=== PATIENT | female | born 1960 | race Caucasian/White ===

== ENCOUNTER 2016-11-12 | Outpatient (CLI) | payer MEDICAID | END 2016-11-12 01:27 | disposition critical access hospital (66) | DX: R07.9 Chest pain, unspecified (principal) | CPT/HCPCS: A0425; A0427 ==

== ENCOUNTER 2016-11-12 01:37 | Emergency (ER) | payer MEDICAID | END 2016-11-12 05:38 | disposition home or self-care (01) | DX: R07.9 Chest pain, unspecified (principal) ==

== ENCOUNTER 2016-11-17 19:00 | Emergency (ER) | payer MEDICAID ==
--- NOTE | 2016-11-17 21:07 | ED Physician Documentation ---
PD HPI LOWER EXT INJURY - Stated complaint Stated Complaint: KNEE PAIN / STRESS - Chief complaint Chief Complaint: Ext Problem - History obtained from History obtained from: Patient - History of Present Illness PD HPI LOW EXT INJURY LOCATION: Right, Knee Type of injury: Twist Where injury occurred: Home Timing - onset: How many weeks ago (2) Timing - duration: Weeks (2) Timing - details: Abrupt onset, Still present, Waxing and waning Worsened by: Moving Associated symptoms: Swelling. 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 : None HEENT: None Psych: None Musculoskeletal: None Derm: None - Past Surgical History Past Surgical History: Yes General: 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 /TAR AND 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 PUMP 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: Hysterectomy - Present Medications Home Medications: Ambulatory Orders Medication Instructions Recorded Confirmed Dexamethasone [Decadron] 4 mg PO DAILY #5 tablet 11/17/16 Tramadol HCl 50 mg PO Q6H PRN #30 tablet 11/17/16 - Allergies Allergies/Adverse Reactions: Allergies Allergy/AdvReac Type Severity Reaction Status Date / Time diphenhydramine HCl * Allergy Respiratory Verified 11/12/16 01:49 [From Benadryl] lansoprazole [From Prevacid] Allergy Hives Verified 11/12/16 01:49 Sulfa (Sulfonamide Allergy Hives Verified 11/12/16 01:49 Antibiotics) Tetracyclines Allergy Respiratory Verified 11/12/16 01:49 Penicillins AdvReac Anaphylaxis Verified 11/17/16 19:06 - Social History Does the pt smoke?: No Smoking Status: Never smoker Does the pt drink ETOH?: No Does the pt have substance abuse?: No - Immunizations Immunizations are current?: Yes - POLST Patient has POLST: No PD ED PE NORMAL - Vitals Vital signs reviewed: Yes - General General: Alert and oriented X 3, No acute distress, Well developed/nourished - Derm Derm: Normal color, Warm and dry, No rash - Extremities Extremities: No edema, No calf tenderness / cord, Other (right knee with some tenderness but no laxity at MCL area. No effusion. ROM guarded. popliteal area not tender.) - Neuro Neuro: No motor deficit, No sensory deficit Results - Vitals Vitals: Oxygen O2 Source Room air - Rads (name of study) knee Radiology: Prelim report reviewed, EMP read contemporaneously (no fractures nor effusion) PD MEDICAL DECISION MAKING - ED course Complexity details: considered differential, d/w patient Departure - Departure Disposition: 01 Home, Self Care Clinical Impression: Knee pain, acute Qualifiers: Laterality: right Qualified Code(s): M25.561 - Pain in right knee Knee strain Qualifiers: Encounter type: initial encounter Laterality: right Qualified Code(s): S86.911A - Strain of unspecified muscle(s) and tendon(s) at lower leg level, right leg, initial encounter Condition: Stable Record reviewed to determine appropriate education?: Yes Instructions: ED Sprain Knee Follow-Up: [facility] [Provider Group] [facility] [Provider Group] [facility] [Provider Group] Prescriptions: Dexamethasone [Decadron] 4 mg PO DAILY #5 tablet Tramadol HCl 50 mg PO Q6H PRN #30 tablet PRN Reason: Pain Comments: Knee brace to support the knee and help ligaments heal. Decadron daily for 5 days for inflammation. Tramadol every 4-6 hours if needed for pain. Obtain local provider; I gave couple of clinic numbers to try. Could also follow up with Orthopedics for the knee if not better in the next week or so. Discharge Date/Time: 11/17/16 22:55
[2016-11-17] MEDS ORDERED: traMADol 50 MG TABLET PO STA (21:27)
[2016-11-17] MEDS ORDERED: traMADol 50 MG TABLET PO ONE (21:30)
--- NOTE | 2016-11-17 22:17 | XRAY Preliminary Report ---
Exam: XR Knee 4 View RT IMPRESSION: 1. No acute bony abnormality. 2. Small joint effusion. 3. Mild tricompartment spurring. [facility] SITE ID: [id number]
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
[2016-11-17 22:41] VITALS: BP 110/61
== END 2016-11-17 22:55 | disposition home or self-care (01) ==
LOC: ED 19:00
DX: S86.911A Strain of unspecified muscle(s) and tendon(s) at lower leg level, right leg, initial encounter (principal); X50.1XXA Overexertion from prolonged static or awkward postures, initial encounter; Y92.009 Unspecified place in unspecified non-institutional (private) residence as the place of occurrence of the external cause
CPT/HCPCS: 73564; 99283; A9270

== ENCOUNTER 2016-11-25 10:45 | Emergency (ER) | payer OTHER, MEDICAID ==
[2016-11-25] MEDS ORDERED: cefTRIAXone 250 MG VIAL IM STA (14:56)
[2016-11-25] MEDS ORDERED: AZITHROMYCIN 250 MG TABLET PO STA (14:57)
[2016-11-25] MEDS ORDERED: ONDANSETRON ODT 4 MG TABLET TL STA (14:57)
[2016-11-25] MEDS ORDERED: lamiVUDine/ZIDOVUDINE 150 MG/300 MG TABLET PO STA (14:57)
[2016-11-25] MEDS ORDERED: RALTEGRAVIR 400 MG TABLET PO STA (14:57)
[2016-11-25] MEDS ORDERED: LIDOCAINE-MPF 1% 5 ML VIAL ONE (15:13)
[2016-11-25] MEDS ORDERED: ONDANSETRON ODT 4 MG TABLET ONE (15:13)
[2016-11-25] MEDS ORDERED: AZITHROMYCIN 250 MG TABLET PO ONE (15:13)
[2016-11-25] MEDS ORDERED: cefTRIAXone 250 MG VIAL ONE (15:13)
== END 2016-11-25 17:01 | disposition home or self-care (01) ==
DX: T76.21XA Adult sexual abuse, suspected, initial encounter (principal); S30.810A Abrasion of lower back and pelvis, initial encounter; M54.5 Low back pain; M54.2 Cervicalgia; R51 Headache; R10.2 Pelvic and perineal pain; Y04.8XXA Assault by other bodily force, initial encounter
CPT/HCPCS: 0133C; 36415; 80306; 84703; 86706; 86803; 87389; 99283; A9270; Q0162

== ENCOUNTER 2016-12-25 18:33 | Emergency (ER) | payer MEDICAID ==
[2016-12-25] MEDS ORDERED: ALBUTEROL NEB 2.5 MG/3 ML INH STA (20:04)
[2016-12-25] MEDS ORDERED: ALBUTEROL NEB 2.5 MG/3 ML INH ONE (20:21)
[2016-12-25] MEDS ORDERED: ALBUTEROL 8 GM INHALER INH STA (21:24)
[2016-12-25] MEDS ORDERED: ALBUTEROL 8 GM INHALER INH ONE (21:41)
== END 2016-12-25 22:14 | disposition home or self-care (01) ==
DX: J06.9 Acute upper respiratory infection, unspecified (principal); B97.89 Other viral agents as the cause of diseases classified elsewhere; I25.2 Old myocardial infarction; Z86.73 Personal history of transient ischemic attack (TIA), and cerebral infarction without residual deficits
CPT/HCPCS: 71020; 93005; 93010; 94640; 94664; 99283; 99284; A9270; J7613

== ENCOUNTER 2016-12-28 23:27 | Outpatient (CLI) | payer MEDICAID | END 2016-12-28 23:28 | disposition critical access hospital (66) | DX: R06.02 Shortness of breath (principal); R07.89 Other chest pain | CPT/HCPCS: A0425; A0427 ==

== ENCOUNTER 2016-12-29 00:01 | Emergency (ER) | payer MEDICAID ==
[2016-12-29] MEDS ORDERED: CETIRIZINE 10 MG TABLET PO STA (01:51)
[2016-12-29] MEDS ORDERED: DEXAMETHASONE 10 MG/ML VIAL PO STA (01:51)
[2016-12-29] MEDS ORDERED: CHERRY SYRUP 10 ML UDC PO ONE (01:53)
[2016-12-29] MEDS ORDERED: CETIRIZINE 10 MG TABLET ONE ×2 (01:53→01:55)
[2016-12-29] MEDS ORDERED: DEXAMETHASONE 10 MG/ML VIAL ONE (01:53)
[2016-12-29] MEDS ORDERED: NITROGLYCERIN SL 0.4 MG TABLET SL STA (01:57)
[2016-12-29] MEDS ORDERED: NITROGLYCERIN SL 0.4 MG TABLET SL ONE (01:58)
[2016-12-29] MEDS ORDERED: ACETAMINOPHEN 325 MG TABLET PO STA (02:28)
[2016-12-29] MEDS ORDERED: ACETAMINOPHEN 325 MG TABLET PO ONE (02:30)
== END 2016-12-29 03:21 | disposition home or self-care (01) ==
DX: R07.2 Precordial pain (principal); R06.00 Dyspnea, unspecified; I25.2 Old myocardial infarction; Z86.73 Personal history of transient ischemic attack (TIA), and cerebral infarction without residual deficits; Z59.0 Homelessness
CPT/HCPCS: 36415; 71020; 80053; 83690; 83735; 83880; 84484; 85025; 93005; 93010; 99283; 99284; A9270

== ENCOUNTER 2017-06-01 08:07 | Emergency (ER) | payer MEDICAID ==
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
[2017-06-01 09:15] VITALS: BP 142/84
== END 2017-06-01 09:08 | disposition home or self-care (01) ==
LOC: ED 08:07
DX: R51 Headache (principal); I25.2 Old myocardial infarction; Z86.73 Personal history of transient ischemic attack (TIA), and cerebral infarction without residual deficits; Z59.0 Homelessness; Z79.82 Long term (current) use of aspirin
CPT/HCPCS: 99282; 99283

== ENCOUNTER 2017-07-05 06:36 | Outpatient (CLI) | payer MEDICAID | END 2017-07-05 06:37 | disposition critical access hospital (66) | LOC: EMS 06:36 | PROVIDERS: ATTEND Surgery | DX: M54.5 Low back pain (principal); R11.2 Nausea with vomiting, unspecified | CPT/HCPCS: A0425; A0429 ==

== ENCOUNTER 2017-07-05 06:53 | Emergency (ER) | payer MEDICAID ==
[2017-07-05] MEDS ORDERED: DEXAMETHASONE 10 MG/ML VIAL PO STA (07:22)
[2017-07-05] MEDS ORDERED: ONDANSETRON ODT 4 MG TABLET TL STA (07:22)
--- NOTE | 2017-07-05 07:27 | ED Physician Documentation ---
PD HPI BACK PAIN - Stated complaint Stated Complaint: N/V BACK PX - Chief complaint Chief Complaint: Back Pain - History obtained from History obtained from: Patient - History of Present Illness Timing - onset: Today Timing - duration: Hours Timing - details: Abrupt onset, Still present Location: Lower, Left Quality: Pain, Spasm, Sharp, Similar to prior episodes Associated symptoms: No: Fever, Weakness, Numbness, Incontinent of urine, Unable to urinate, Hematuria, Incontinent of stool Improves with: Rest, Position Worsened by: Movement, Lifting Similar symptoms before: Diagnosis (back pain) Recently seen: Not recently seen - Additional information Additional information: 56-year-old homeless female with a history of fictitious emergency department visits comes in this morning with low back pain with pain radiating to her left leg. She states that she vomited this morning and still has nausea and after vomiting this is when the pain started. She denies any urinary symptoms. Review of Systems Constitutional: denies: Fever, Chills, Myalgias, Fatigue Eyes: denies: Decreased vision Ears: denies: Ear pain Nose: denies: Congestion Throat: denies: Sore throat Cardiac: denies: Chest pain / pressure Respiratory: denies: Dyspnea, Cough GI: reports: Nausea, Vomiting. denies: Abdominal Pain, Constipation, Diarrhea : denies: Dysuria, Frequency Skin: denies: Rash Musculoskeletal: reports: Back pain. 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: None : None HEENT: None Psych: None Musculoskeletal: None Derm: None - Past Surgical History Past Surgical History: Yes General: 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 /DATA MANAGEMENT SPECIALIST: Hysterectomy - Present Medications Home Medications: Ambulatory Orders Medication Instructions Recorded Confirmed traMADol [Ultram] 50 - 100 mg PO Q6H PRN #20 tablet 07/05/17 - Allergies Allergies/Adverse Reactions: Allergies Allergy/AdvReac Type Severity Reaction Status Date / Time acetaminophen Allergy Respiratory Verified 07/05/17 07:05 aspirin Allergy Unknown Verified 07/05/17 07:05 diphenhydramine HCl * Allergy Respiratory Verified 07/05/17 07:05 [From Benadryl] lansoprazole [From Prevacid] Allergy Hives Verified 07/05/17 07:05 Sulfa (Sulfonamide Allergy Hives Verified 07/05/17 07:05 Antibiotics) Tetracyclines Allergy Respiratory Verified 07/05/17 07:05 Penicillins AdvReac Anaphylaxis Verified 07/05/17 07:05 - Social History Does the pt smoke?: No Smoking Status: Never smoker Does the pt drink ETOH?: No Does the pt have substance abuse?: No - Immunizations Immunizations are current?: Yes - POLST Patient has POLST: No PD ED PE NORMAL - Vitals Vital signs reviewed: Yes (hypertensive) - General General: Well developed/nourished, Other (The patient is whinning in a high pitched voice and appears to be in pain ) - HEENT HEENT: Atraumatic, PERRL, EOMI - Neck Neck: Supple, no meningeal sign - Respiratory Respiratory: No respiratory distress - Abdomen Abdomen: Soft, Non tender - Back Back: No CVA TTP, No spinal TTP, Other (There is some paraspinous muscle tenderness to the lower lumbar paraspinous muscles on the left side. ) - Derm Derm: Normal color, Warm and dry, No rash - Extremities Extremities: No deformity, No edema - Neuro Neuro: No motor deficit, No sensory deficit - Psych Psych: Normal mood, Normal affect Results - Vitals Vitals: Vital Signs - 24 hr 07/05/17 06:58 Temperature 36.8 C Heart Rate 73 Respiratory 18 Rate Blood Pressure 144/84 H O2 Saturation 100 Oxygen O2 Source Room air - Labs Labs: Laboratory Tests 07/05/17 08:00 Urine Color YELLOW Urine Clarity CLEAR Urine pH 7.5 Ur Specific [place] 1.010 Urine Protein NEGATIVE Urine Glucose (UA) NEGATIVE Urine Ketones NEGATIVE Urine Occult Blood NEGATIVE Urine Nitrite NEGATIVE Urine Bilirubin NEGATIVE Urine Urobilinogen 0.2 (NORMAL) Ur Leukocyte Esterase NEGATIVE Ur Microscopic Review NOT INDICATED Urine Culture Comments NOT INDICATED Procedures - Bedside sono Bedside sono by STALIN: Bernice bedside ultrasound the left kidney is imaged there is no evidence of hydronephrosis and the kidney is sonographically nontender. - IVC sono (time) 0717 Bedside IVC sono: IVC measures (cm) (1.58), Euvolemia PD MEDICAL DECISION MAKING - ED course Complexity details: reviewed results, re-evaluated patient, considered differential, d/w patient ED course: 52-year-old homeless female with acute lumbar pain with radiation down the left leg appears to have acute sciatica after vomiting. She does not have specific explanation for her vomiting and does not have symptoms preceding the episode. She does not have flank pain and has a nontender left kidney. Here in the emergency department she is given dexamethasone, Zofran and IM Toradol. Departure - Departure Disposition: Home, Self Care Clinical Impression: Sciatica Qualifiers: Laterality: left Qualified Code(s): M54.32 - Sciatica, left side Condition: Stable Instructions: ED Sciatica Follow-Up: [facility] [Provider Group] Prescriptions: traMADol [Ultram] 50 - 100 mg PO Q6H PRN #20 tablet PRN Reason: Pain
[2017-07-05] MEDS ORDERED: ONDANSETRON ODT 4 MG TABLET ONE (07:35)
[2017-07-05] MEDS ORDERED: CHERRY SYRUP 10 ML UDC PO ONE (07:36)
[2017-07-05] MEDS ORDERED: DEXAMETHASONE 10 MG/ML VIAL ONE (07:36)
[2017-07-05] MEDS ORDERED: KETOROLAC 60 MG/2 ML VIAL IM STA (07:44)
[2017-07-05] MEDS ORDERED: KETOROLAC 60 MG/2 ML VIAL ONE (08:03)
[2017-07-05 08:16] LABS: BILIRUBIN,URINE NEGATIVE (NEGATIVE); PH,URINE 7.5 PH (5.0-7.5)
[2017-07-05 08:20] LABS: UA CHARGE (STRIP ONLY) YES; UR CULTURE IF IND NOT INDICATED
[2017-07-05 09:10] VITALS: BP 145/84
== END 2017-07-05 09:11 | disposition home or self-care (01) ==
LOC: EDUNIT# → ED 06:53
DX: M54.32 Sciatica, left side (principal); I25.2 Old myocardial infarction; Z86.73 Personal history of transient ischemic attack (TIA), and cerebral infarction without residual deficits; Z59.0 Homelessness
CPT/HCPCS: 81003; 96372; 99283; 99284; A9270; Q0162; 81001; 87086

== ENCOUNTER 2017-07-13 21:19 | Outpatient (CLI) | payer MEDICAID | END 2017-07-13 21:20 | disposition critical access hospital (66) | LOC: EMS 21:19 | PROVIDERS: ATTEND Surgery | DX: M54.5 Low back pain (principal) | CPT/HCPCS: A0425; A0429 ==

== ENCOUNTER 2017-07-13 21:37 | Emergency (ER) | payer MEDICAID ==
[2017-07-13] MEDS ORDERED: HYDROmorphone 1 MG/ML CARPUJECT IM STA (22:00)
[2017-07-13] MEDS ORDERED: GABAPENTIN 100 MG CAPSULE PO STA (22:00)
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
[2017-07-13] MEDS ORDERED: GABAPENTIN 100 MG CAPSULE ONE (22:06)
[2017-07-13] MEDS ORDERED: HYDROmorphone 1 MG/ML CARPUJECT ONE ×2 (22:06→22:16)
[2017-07-13] MEDS ORDERED: GABAPENTIN 300 MG CAPSULE ONE (22:16)
[2017-07-14] MEDS ORDERED: KETOROLAC 60 MG/2 ML VIAL IVP STA (05:38)
[2017-07-14] MEDS ORDERED: KETOROLAC 60 MG/2 ML VIAL IM STA (05:44)
[2017-07-14] MEDS ORDERED: KETOROLAC 15 MG/ML VIAL ONE (05:46)
[2017-07-14] MEDS ORDERED: KETOROLAC 60 MG/2 ML VIAL ONE (05:49)
[2017-07-14 06:04] VITALS: BP 141/82
== END 2017-07-14 06:01 | disposition home or self-care (01) ==
LOC: EDUNIT# → ED 21:37
DX: M54.32 Sciatica, left side (principal); I25.2 Old myocardial infarction; Z86.73 Personal history of transient ischemic attack (TIA), and cerebral infarction without residual deficits; R03.0 Elevated blood-pressure reading, without diagnosis of hypertension
CPT/HCPCS: 96372; 99283; A9270; J1170

== ENCOUNTER 2017-07-22 05:50 | Outpatient (CLI) | payer MEDICAID | END 2017-07-22 05:51 | disposition critical access hospital (66) | LOC: EMS 05:50 | PROVIDERS: ATTEND Surgery | DX: M54.9 Dorsalgia, unspecified (principal); G89.29 Other chronic pain | CPT/HCPCS: A0425; A0429 ==

== ENCOUNTER 2017-07-22 06:05 | Emergency (ER) | payer MEDICAID ==
--- NOTE | 2017-07-22 07:35 | ED Physician Documentation ---
PD HPI BACK PAIN - Stated complaint Stated Complaint: BACK PAIN - Chief complaint Chief Complaint: Back Pain - History obtained from History obtained from: Patient - History of Present Illness Timing - onset: How many weeks ago (2 1/2) Timing - duration: Weeks (2 1/2) Timing - details: Abrupt onset, Still present Location: Lower, Left Quality: Pain, Spasm, Sharp, Similar to prior episodes Associated symptoms: Incontinent of urine (intermittant X 2 months.). No: Fever , Weakness, Numbness, Unable to urinate, Hematuria, Incontinent of stool Improves with: Rest Worsened by: Movement, Twisting, Palpation Contributing factors: Lifting, Twisting Similar symptoms before: Diagnosis (sciatica) Recently seen: Emergency Dept - Additional information Additional information: 56-year-old female with a prior history of fictitious emergency department visits as developed some back pain which occurred after she vomited about 2 and half weeks ago. She continues to have this pain in her left lower back radiating into her left leg. She was seen last week and given gabapentin. She states that she did not feel this medicine helped with the pain at all. She continues to have pain and has had a difficult time getting into see her primary care doctor. She has been assigned to Kirsten Gonzalez as her doctor. The patient has not been able to get the paratransit to take her to Dr. Gonzalez's office.She continues to live [facility] the [facility]. Review of Systems Constitutional: denies: Fever Eyes: denies: Decreased vision Ears: denies: Ear pain Nose: denies: Congestion Throat: denies: Sore throat Cardiac: denies: Chest pain / pressure, Palpitations Respiratory: denies: Dyspnea, Cough GI: reports: Nausea. denies: Abdominal Pain, Vomiting, Constipation, Diarrhea : reports: Incontinent (intermmittent for 2 months with a difficulty in getting to the bathroom quick enough.). denies: Dysuria, Frequency Skin: denies: Rash Musculoskeletal: reports: Back pain, Extremity pain. denies: Neck pain Neurologic: reports: Numbness (To the anterior left thigh). 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: None : None HEENT: None Psych: None Musculoskeletal: None Derm: None - Past Surgical History Past Surgical History: Yes General: 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 /NURSE PLASTICS: Hysterectomy - Present Medications Home Medications: Ambulatory Orders Medication Instructions Recorded Confirmed traMADol [Ultram] 50 - 100 mg PO Q6H PRN #20 tablet 07/05/17 Gabapentin 300 mg PO TID #30 capsule 07/13/17 traMADol [Ultram] 50 - 100 mg PO Q6H PRN #20 tablet 07/22/17 - Allergies Allergies/Adverse Reactions: Allergies Allergy/AdvReac Type Severity Reaction Status Date / Time acetaminophen Allergy Respiratory Verified 07/13/17 21:43 aspirin Allergy Unknown Verified 07/13/17 21:43 diphenhydramine HCl * Allergy Respiratory Verified 07/13/17 21:43 [From Benadryl] lansoprazole [From Prevacid] Allergy Hives Verified 07/13/17 21:43 Sulfa (Sulfonamide Allergy Hives Verified 07/13/17 21:43 Antibiotics) Tetracyclines Allergy Respiratory Verified 07/13/17 21:43 Penicillins AdvReac Anaphylaxis Verified 07/13/17 21:43 - Social History Does the pt smoke?: No Smoking Status: Never smoker Does the pt drink ETOH?: No Does the pt have substance abuse?: No - Immunizations Immunizations are current?: Yes - POLST Patient has POLST: No PD ED PE NORMAL - Vitals Vital signs reviewed: Yes (hypertnsive ) - General General: No acute distress, Well developed/nourished - HEENT HEENT: Atraumatic, PERRL, EOMI - Neck Neck: Supple, no meningeal sign - Respiratory Respiratory: No respiratory distress - Back Back: No CVA TTP, No spinal TTP, Other (There is tenderenss to the left lower lumbar muscles and into the sciatic notch. ) - Derm Derm: Normal color, Warm and dry, No rash - Neuro Neuro: No motor deficit, No sensory deficit - Psych Psych: Normal mood, Normal affect Results - Vitals Vitals: Vital Signs - 24 hr 07/22/17 06:10 Heart Rate 74 Respiratory 17 Rate Blood Pressure 140/88 H O2 Saturation 98 Oxygen O2 Source Room air PD MEDICAL DECISION MAKING - ED course Complexity details: reviewed old records, re-evaluated patient, considered differential, d/w patient ED course: 56-year-old female with a history of sciatica after a vomiting episode has exacerbation of her symptoms again. She does not think that she got much relief with the use of the gabapentin. She does feel that she had some improvement with use of the tramadol given previously. Here in the emergency department today she is given a dose of dexamethasone and Toradol IM and we will place her back on some tramadol. Departure - Departure Disposition: Home, Self Care Clinical Impression: Sciatica Qualifiers: Laterality: left Qualified Code(s): M54.32 - Sciatica, left side Instructions: ED Sciatica Follow-Up: Yusef Gonzalez DO [Provider Admit Priv/Credential] - Prescriptions: traMADol [Ultram] 50 - 100 mg PO Q6H PRN #20 tablet PRN Reason: Pain
[2017-07-22] MEDS ORDERED: KETOROLAC 60 MG/2 ML VIAL IM STA (07:44)
[2017-07-22] MEDS ORDERED: DEXAMETHASONE 10 MG/ML VIAL PO STA (07:44)
[2017-07-22] MEDS ORDERED: DEXAMETHASONE 10 MG/ML VIAL ONE (07:58)
[2017-07-22] MEDS ORDERED: KETOROLAC 60 MG/2 ML VIAL ONE (07:58)
[2017-07-22 08:48] VITALS: BP 136/88
== END 2017-07-22 09:14 | disposition home or self-care (01) ==
LOC: EDUNIT# → EDBD → ED 06:05
DX: M54.32 Sciatica, left side (principal); I25.2 Old myocardial infarction; Z86.73 Personal history of transient ischemic attack (TIA), and cerebral infarction without residual deficits
CPT/HCPCS: 96372; 99283

== ENCOUNTER 2018-06-02 03:13 | Outpatient (CLI) | payer SELFPAY | END 2018-06-02 03:14 | disposition critical access hospital (66) | LOC: EMS 03:13 | PROVIDERS: ATTEND Surgery | DX: R51 Headache (principal) | CPT/HCPCS: A0425; A0429; A0999 ==

== ENCOUNTER 2018-06-02 03:31 | Emergency (ER) | payer MEDICAID ==
--- NOTE | 2018-06-02 03:56 | ED Physician Documentation ---
PD HPI HEADACHE - Stated complaint Stated Complaint: CARBONE, LIGHT SENSITIVITY, NAUSEA - Chief complaint Chief Complaint: Neuro - History obtained from History obtained from: Patient, EMS - History of Present Illness Timing - onset: Enter time (00:00 (midnight)), Today Timing - onset during: Rest Timing - details: Abrupt onset, Still present in ED Pain level now: 8 Worst headache ever?: No: Worst headache ever? Location: Front, Right, Left Quality: Throbbing, Aching Associated symptoms: Nausea, Vomiting. No: Fever, Stiff neck, Weakness, Numbness, Vision changes Improved by: Rest, Dark room, Quiet Worsened by: Light, Noise, Moving Recently seen: Not recently seen Review of Systems Constitutional: reports: Reviewed and negative Eyes: reports: Photophobia. denies: Loss of vision, Decreased vision Ears: reports: Ear pain (right) Throat: reports: Sore throat Cardiac: reports: Reviewed and negative Respiratory: reports: Reviewed and negative GI: reports: Nausea, Vomiting. denies: Abdominal Pain Musculoskeletal: denies: Neck pain Neurologic: reports: Headache. 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 surgery /AUTOMATIC GRINDER OPERATOR: Hysterectomy Cardiovascular: Other - Present Medications Home Medications: Ambulatory Orders Medication Instructions Recorded Confirmed Azithromycin [Zithromax] 250 mg PO DAILY #4 tablet 06/02/18 oxyCODONE [Roxicodone] 5 mg PO Q6H PRN #12 tablet 06/02/18 - Allergies Allergies/Adverse Reactions: Allergies Allergy/AdvReac Type Severity Reaction Status Date / Time acetaminophen Allergy Respiratory Verified 06/02/18 03:35 aspirin Allergy Unknown Verified 06/02/18 03:35 diphenhydramine HCl * Allergy Respiratory Verified 06/02/18 03:35 [From Benadryl] ibuprofen Allergy Itching Verified 06/02/18 03:35 lansoprazole [From Prevacid] Allergy Hives Verified 06/02/18 03:35 Sulfa (Sulfonamide Allergy Hives Verified 06/02/18 03:35 Antibiotics) Tetracyclines Allergy Respiratory Verified 06/02/18 03:35 Penicillins AdvReac Anaphylaxis Verified 06/02/18 03:35 - Social History Does the pt smoke?: No Smoking Status: Never smoker Does the pt drink ETOH?: No Does the pt have substance abuse?: No - Immunizations Immunizations are current?: Yes - POLST Patient has POLST: No PD ED PE NORMAL - Vitals Vital signs reviewed: Yes - General General: Alert and oriented X 3, No acute distress, Well developed/nourished - HEENT HEENT: PERRL, EOMI, Moist mucous membranes - Neck Neck: Supple, no meningeal sign - Cardiac Cardiac: RRR, No murmur - Respiratory Respiratory: No respiratory distress, Clear bilaterally - Abdomen Abdomen: Soft, Non tender PD ED PE EXPANDED - HEENT HEENT: R TM red (trace erythema), Pharyngeal erythema (predominantly right- sided with swelling). No: L TM red, Tonsillar exudate Results - Vitals Vitals: Vital Signs - 24 hr 06/02/18 06/02/18 06/02/18 03:35 04:25 06:02 Temperature 37.1 C Heart Rate 85 83 74 Respiratory 14 12 14 Rate Blood Pressure 106/92 H 147/87 H 126/86 H O2 Saturation 99 100 100 Oxygen O2 Source Room air - Labs Labs: Laboratory Tests 06/02/18 06/02/18 03:30 03:30 WBC 6.0 RBC 4.57 Hgb 14.1 Hct 41.4 MCV 90.6 MCH 30.9 MCHC 34.1 RDW 13.3 Plt Count 234 MPV 8.6 Neut # (Auto) 4.2 Lymph # (Auto) 1.3 L [place] # (Auto) 0.3 Eos # (Auto) 0.1 Baso # (Auto) 0.0 Absolute Nucleated RBC 0.00 Nucleated RBC % 0.0 Sodium 138 Potassium 3.5 Chloride 103 Carbon Dioxide 26 Anion Gap 9.0 BUN 8 Creatinine 1.0 Estimated GFR (MDRD) 58 L Glucose 110 H Calcium 9.7 PD MEDICAL DECISION MAKING - ED course Complexity details: reviewed old records, reviewed results, re-evaluated patient , considered differential, d/w patient - Sepsis Event Vital Signs: Vital Signs - 24 hr 06/02/18 06/02/18 06/02/18 03:35 04:25 06:02 Temperature 37.1 C Heart Rate 85 83 74 Respiratory 14 12 14 Rate Blood Pressure 106/92 H 147/87 H 126/86 H O2 Saturation 99 100 100 Oxygen O2 Source Room air Departure - Departure Disposition: 01 Home, Self Care Clinical Impression: Headache, Pharyngitis Condition: Good Instructions: ED Cephalgia Unspecified, ED Strep Pharyngitis Poss Follow-Up: [facility] [Provider Group] [facility] [Provider Group] Prescriptions: Azithromycin [Zithromax] 250 mg PO DAILY #4 tablet oxyCODONE [Roxicodone] 5 mg PO Q6H PRN #12 tablet PRN Reason: Pain Discharge Date/Time: 06/02/18 08:38
[2018-06-02] MEDS ORDERED: ONDANSETRON 4 MG/2 ML VIAL IVP STA (04:37)
[2018-06-02] MEDS ORDERED: SODIUM CHLORIDE 0.9% 1,000 ML IV STA (04:38)
[2018-06-02] MEDS ORDERED: MORPHINE 2 MG/ML SYRINGE IVP STA (04:38)
[2018-06-02 04:46] LABS: BASOPHILS % (AUTO) 0.6 %; EOSINOPHILS # (AUTO) 0.1 10^3/uL (0.0-0.7); EOSINOPHILS % (AUTO) 2.1 %; HGB - HEMOGLOBIN 14.1 g/dL (12.0-16.0); LYMPHOCYTES # (AUTO) 1.3 10^3/uL (1.5-3.5); LYMPHOCYTES % (AUTO) 21.2 %; MEAN CORPUSCULAR HEMOGLOBIN 30.9 pg (27.0-31.0); MEAN CORPUSCULAR HGB CONC 34.1 g/dL (32.0-36.0); MEAN CORPUSCULAR VOLUME 90.6 fL (81.0-99.0); MEAN PLATELET VOLUME 8.6 fL (7.9-10.8); MONOCYTES # (AUTO) 0.3 10^3/uL (0.0-1.0); MONOCYTES % (AUTO) 5.8 %; NEUTROPHILS # (AUTO) 4.2 10^3/uL (1.5-6.6); NEUTROPHILS % (AUTO) 70.3 %; PLT - PLATELET COUNT 234 10^3/uL (130-450); RED BLOOD COUNT 4.57 10^6/uL (4.20-5.40); RED CELL DISTRIBUTION WIDTH 13.3 % (12.0-15.0)
[2018-06-02 04:49] LABS: CALCIUM 9.7 mg/dL (8.5-10.3)
[2018-06-02 06:04] VITALS: BP 126/86
[2018-06-02] MEDS ORDERED: AZITHROMYCIN 250 MG TABLET PO STA (06:09)
[2018-06-02] MEDS ORDERED: oxyCODONE 5 MG TABLET PO STA (06:09)
== END 2018-06-02 08:38 | disposition home or self-care (01) ==
LOC: EDUNIT# → ED 03:31
DX: R51 Headache (principal); J02.9 Acute pharyngitis, unspecified; E11.9 Type 2 diabetes mellitus without complications
CPT/HCPCS: 36415; 80048; 85025; 96361; 96374; 99283; 99284; A9270; J2270

== ENCOUNTER 2019-01-01 21:15 | Outpatient (CLI) | payer MEDICAID | END 2019-01-01 21:16 | disposition critical access hospital (66) | LOC: EMS 21:15 | PROVIDERS: ATTEND Surgery | DX: R68.84 Jaw pain (principal); R51 Headache; R45.1 Restlessness and agitation | CPT/HCPCS: A0425; A0429 ==

== ENCOUNTER 2019-01-01 21:33 | Emergency (ER) | payer MEDICAID ==
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
[2019-01-01] MEDS ORDERED: oxyCODONE 5 MG TABLET PO STA (22:35)
[2019-01-01 23:38] VITALS: BP 139/90
== END 2019-01-01 23:47 | disposition home or self-care (01) ==
LOC: EDBD → EDUNIT# → ED 21:33
DX: R68.84 Jaw pain (principal); G89.29 Other chronic pain; E11.9 Type 2 diabetes mellitus without complications; Z86.73 Personal history of transient ischemic attack (TIA), and cerebral infarction without residual deficits; Z79.82 Long term (current) use of aspirin
CPT/HCPCS: 99283; A9270

== ENCOUNTER 2019-01-03 14:10 | Emergency (ER) | payer MEDICAID ==
--- NOTE | 2019-01-03 14:51 | ED Physician Documentation ---
PD HPI HEENT - Stated complaint Stated Complaint: JAW PX - Chief complaint Chief Complaint: Heent - History obtained from History obtained from: Patient, Other (The history is taken in the room with Jenny as witness) - History of Present Illness Timing - onset: How many weeks ago (1) Timing - duration: Weeks (1) Timing - details: Gradual onset, Still present Location: Other (right jaw) Worsens: Position Associated symptoms: Congestion, Headache, Cough. No: Fever Similar symptoms before: Diagnosis (jaw pain) Recently seen: Emergency Dept - Additional information Additional information: 58-year-old female who has a prior history of fictitious emergency department visits has come to the emergency department with a chief complaint of right upper jaw pain. She was seen here in the emergency department 2 days ago and given some pain medication which she states is not helping. She states that her pain is severe. Review of Systems Constitutional: denies: Fever Eyes: denies: Decreased vision Ears: denies: Ear pain Nose: reports: Congestion. denies: Rhinorrhea / runny nose Throat: reports: Other (jaw pain). denies: Dental pain / toothache, Sore throat Respiratory: reports: Cough. 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 : None HEENT: None Psych: None Musculoskeletal: Chronic back pain Derm: None - Past Surgical History Past Surgical History: Yes General: 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, Gastric surgery /CAR WASHER: Hysterectomy Cardiovascular: Other - Present Medications Home Medications: Ambulatory Orders Medication Instructions Recorded Confirmed RX: Oxycodone HCl 5 mg PO TID PRN #18 tablet 01/01/19 RX: traMADol [Ultram] 50 - 100 mg PO Q6H PRN #20 tablet 01/03/19 - Allergies Allergies/Adverse Reactions: Allergies Allergy/AdvReac Type Severity Reaction Status Date / Time acetaminophen Allergy Respiratory Verified 01/03/19 14:18 aspirin Allergy Unknown Verified 01/03/19 14:18 diphenhydramine HCl * Allergy Respiratory Verified 01/03/19 14:18 [From Benadryl] ibuprofen Allergy Itching Verified 01/03/19 14:18 lansoprazole [From Prevacid] Allergy Hives Verified 01/03/19 14:18 Sulfa (Sulfonamide Allergy Hives Verified 01/03/19 14:18 Antibiotics) Tetracyclines Allergy Respiratory Verified 01/03/19 14:18 Penicillins AdvReac Anaphylaxis Verified 01/03/19 14:18 - Social History Does the pt smoke?: No Smoking Status: Never smoker Does the pt drink ETOH?: No Does the pt have substance abuse?: No - Immunizations Immunizations are current?: Yes - POLST Patient has POLST: No PD ED PE NORMAL - Vitals Vital signs reviewed: Yes (hypertensive ) - General General: Alert and oriented X 3, No acute distress, Well developed/nourished - HEENT HEENT: Atraumatic, PERRL, EOMI, Other (There is infamation to the left TM with retained landmarks the right is with less involvment. There is some mild tenderness to the right TMJ area and no specific tenderness to palpation of the teeth. When I complete the exam the patient indicates the teech are moving around. 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, No motor deficit, No sensory deficit, Normal speech Eye Opening: Spontaneous Motor: Obeys Commands Verbal: Oriented GCS Score: 15 - Psych Psych: Normal mood, Normal affect Results - Vitals Vitals: Vital Signs - 24 hr 01/03/19 01/03/19 14:15 15:25 Temperature 36 C L 36.6 C Heart Rate 79 80 Respiratory 16 16 Rate Blood Pressure 142/96 H 138/92 H O2 Saturation 100 100 Oxygen O2 Source Room air - Labs Labs: Laboratory Tests 01/03/19 14:52 Urine Color YELLOW Urine Clarity CLEAR Urine pH 5.5 Ur Specific [place] 1.025 Urine Protein NEGATIVE Urine Glucose (UA) NEGATIVE Urine Ketones NEGATIVE Urine Occult Blood NEGATIVE Urine Nitrite NEGATIVE Urine Bilirubin NEGATIVE Urine Urobilinogen 0.2 (NORMAL) Ur Leukocyte Esterase NEGATIVE Ur Microscopic Review NOT INDICATED Urine Culture Comments NOT INDICATED PD MEDICAL DECISION MAKING - ED course Complexity details: considered differential, d/w patient ED course: 58-year-old female with a complaint of right jaw pain has an unremarkable remarkable exam with the exception of some mild inflammation in the TMs bilaterally. She is complaining of urinary incontinence and believes she might have a urinary tract infection. A specimen is collected and is unremarkable. She is administered a dose of decadron and we will change her pain medication to tramadol. Departure - Departure Disposition: 01 Home, Self Care Clinical Impression: TMJ tenderness, right Condition: Stable Instructions: ED TMJ Syndrome Follow-Up: [facility] [Provider Group] Prescriptions: RX: traMADol [Ultram] 50 - 100 mg PO Q6H PRN #20 tablet PRN Reason: Pain Discharge Date/Time: 01/03/19 15:25
[2019-01-03 15:01] LABS: BILIRUBIN,URINE NEGATIVE (NEGATIVE); CLARITY,URINE CLEAR (CLEAR); GLUCOSE, URINE (UA) NEGATIVE (NEGATIVE); KETONES,URINE (UA) NEGATIVE (NEGATIVE); LEUKOCYTE ESTERASE, URINE NEGATIVE (NEGATIVE); NITRITE,URINE NEGATIVE (NEGATIVE); OCCULT BLOOD,URINE NEGATIVE (NEGATIVE); PH,URINE 5.5 PH (5.0-7.5); PROTEIN,URINE NEGATIVE (NEGATIVE); UROBILINOGEN,URINE 0.2 (NORMAL) E.U./dL (NORMAL)
[2019-01-03] MEDS ORDERED: DEXAMETHASONE 10 MG/ML VIAL PO STA (15:17)
[2019-01-03 15:25] VITALS: BP 138/92
== END 2019-01-03 15:25 | disposition home or self-care (01) ==
LOC: ED 14:10
DX: M26.601 Right temporomandibular joint disorder, unspecified (principal); E11.9 Type 2 diabetes mellitus without complications
CPT/HCPCS: 81001; 81003; 87086; 99283

== ENCOUNTER 2019-05-13 | Outpatient (CLI) | payer MEDICAID | END 2019-05-13 23:59 | disposition home or self-care (01) ==

== ENCOUNTER 2022-02-18 09:25 | Emergency (ER) | payer MEDICAID ==
--- NOTE | 2022-02-18 10:01 | ED Physician Documentation ---
PD HPI URI - Stated complaint Stated Complaint: COUGH/CONGESTION - Chief complaint Chief Complaint: General - History obtained from History obtained from: Patient - History of Present Illness Timing - onset: How many weeks ago (1) Timing duration: Weeks (1) Timing details: Abrupt onset, Still present (has had cough and dypsnea for a week, without improving. Poor sleep due to cough.) Associated symptoms: Chills, Nasal congestion, Dry cough, Dyspnea. No: Fever, Ear pain, Sore throat, NVD Contributing factors: COPD / asthma. No: Sick contact, Travel, Unimmunized Similar symptoms before: Has not had sx before Recently seen: Not recently seen Review of Systems Constitutional: reports: Myalgias. denies: Fever, Chills Nose: reports: Congestion Throat: denies: Sore throat Cardiac: denies: Chest pain / pressure, Palpitations, Pedal edema, Calf pain Respiratory: reports: Dyspnea, Cough, Wheezing GI: denies: Abdominal Pain, Nausea, Vomiting, Diarrhea : denies: Dysuria, Frequency Skin: denies: Rash Neurologic: reports: Generalized weakness. denies: Focal weakness, Numbness, Near syncope, Altered mental status, Headache PD PAST MEDICAL HISTORY - Past Medical History Cardiovascular: [place] Respiratory: Asthma, COPD Neuro: CVA, Headaches, Seizure disorder Endocrine/Autoimmune: Type 2 diabetes, HyPERthyroidism GI: None THREAT MONITORING ANALYST: None : None HEENT: None Psych: None Musculoskeletal: Chronic back pain Derm: None - Past Surgical History Past Surgical History: Yes General: 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, Gastric surgery /THREAT MONITORING ANALYST: Hysterectomy Cardiovascular: Other - Present Medications Home Medications: Ambulatory Orders Medication Instructions Recorded Confirmed Oxycodone HCl 5 mg PO TID PRN #18 tablet 01/01/19 traMADol [Ultram] 50 - 100 mg PO Q6H PRN #20 tablet 01/03/19 Albuterol Sulf [Ventolin Hfa 2 - 3 puffs INH QID 10 Days #1 02/18/22 Inhaler] inhaler Benzonatate [Tessalon] 100 mg PO TID PRN #20 cap 02/18/22 dexAMETHasone [Decadron] 4 mg PO DAILY #5 tablet 02/18/22 - Allergies Allergies/Adverse Reactions: Allergies Allergy/AdvReac Type Severity Reaction Status Date / Time acetaminophen Allergy Respiratory Verified 02/18/22 09:38 aspirin Allergy Unknown Verified 02/18/22 09:38 diphenhydramine HCl * Allergy Respiratory Verified 02/18/22 09:38 [From Benadryl] ibuprofen Allergy Itching Verified 02/18/22 09:38 lansoprazole [From Prevacid] Allergy Hives Verified 02/18/22 09:38 Sulfa (Sulfonamide Allergy Hives Verified 02/18/22 09:38 Antibiotics) Tetracyclines Allergy Respiratory Verified 02/18/22 09:38 Penicillins AdvReac Anaphylaxis Verified 02/18/22 09:38 - Social History Does the pt smoke?: No Smoking Status: Never smoker Does the pt drink ETOH?: No Does the pt have substance abuse?: No - Immunizations Immunizations are current?: Yes - POLST Patient has POLST: No PD ED PE NORMAL - Vitals Vital signs reviewed: Yes - General General: Alert and oriented X 3, No acute distress, Well developed/nourished - HEENT HEENT: Ears normal, Moist mucous membranes, Pharynx benign - Neck Neck: Supple, no meningeal sign, No adenopathy - Cardiac Cardiac: RRR, No murmur - Respiratory Respiratory: No respiratory distress. No: Clear bilaterally (no caorse sounds. No fine crackles. Has tight expiratory sounds with some end exp wheezing. ) - Abdomen Abdomen: Soft, Non tender - Derm Derm: Normal color, Warm and dry - Extremities Extremities: Normal ROM s pain, No edema, No calf tenderness / cord - Neuro Neuro: Alert and oriented X 3, No motor deficit, Normal speech Results - Vitals Vitals: Vital Signs - 24 hr 02/18/22 02/18/22 02/18/22 09:34 10:47 11:37 Temperature 37.2 C 37.0 C Heart Rate 95 83 77 Respiratory 16 20 16 Rate Blood Pressure 153/103 H 158/94 H O2 Saturation 96 94 Oxygen O2 Source Room air - EKG (time done) 10:31 Rate: Rate (enter#) (70) Rhythm: NSR [place]: Normal Intervals: Normal [place] QRS: Normal Ischemia: Normal ST segments. No: ST elevation c/w ischemia, ST depression - Labs Labs: Laboratory Tests 02/18/22 10:24 Nasal Adenovirus (PCR) NOT DETECTED Nasal B. parapertussis DNA (PCR) NOT DETECTED Nasal Coronavir 229E PCR NOT DETECTED Nasal Coronavir HKU1 PCR NOT DETECTED Nasal Coronavir NL63 PCR NOT DETECTED Nasal Coronavir OC43 PCR NOT DETECTED Nasal Enterovir/Rhinovir PCR DETECTED A Nasal Influenza B PCR NOT DETECTED Nasal Influenza A PCR NOT DETECTED Nasal Parainfluen 1 PCR NOT DETECTED Nasal Parainfluen 2 PCR NOT DETECTED Nasal Parainfluen 3 PCR NOT DETECTED Nasal Parainfluen 4 PCR NOT DETECTED Nasal RSV (PCR) NOT DETECTED Nasal B.pertussis DNA PCR NOT DETECTED Nasal C.pneumoniae (PCR) NOT DETECTED Bobby Human Metapneumo PCR NOT DETECTED Nasal M.pneumoniae (PCR) NOT DETECTED Nasal SARS-CoV-2 (PCR) NOT DETECTED - Rads (name of study) chest xray Radiology: Prelim report reviewed (no acute process. suggestion of hiatal hernia versus cavitary lesion left lower lung. ), See rad report PD MEDICAL DECISION MAKING - ED course Complexity details: reviewed results (CXR without acute process (hiatal hernia noted). ECG okay. Has URI symptoms with wheezing. Not history of asthma though. ), considered differential, d/w patient Departure - Departure Disposition: 01 Home, Self Care Clinical Impression: Wheezing Upper respiratory infection Qualifiers: URI type: unspecified viral URI Qualified Code(s): J06.9 - Acute upper respiratory infection, unspecified Condition: Stable Record reviewed to determine appropriate education?: Yes Instructions: ED Upper Resp Infec No Abx Tx Prescriptions: dexAMETHasone [Decadron] 4 mg PO DAILY #5 tablet Benzonatate [Tessalon] 100 mg PO TID PRN #20 cap PRN Reason: Cough Albuterol Sulf [Ventolin Hfa Inhaler] 2 - 3 puffs INH QID 10 Days #1 inhaler Comments: Your chest x-ray is clear without any signs of pneumonia. Your viral panel test is negative for COVID. It does show the presence of another virus which is a simple head cold type of one called rhinovirus. This typically will last 3 to 5 days and improved. We can help your symptoms will of the cough and wheezing with an albuterol inhaler as well as Decadron steroid for inflammation and benzonatate for cough. I sent these prescriptions to [facility]. Stay well-hydrated otherwise. Return if worsening symptoms generally. Discharge Date/Time: 02/18/22 12:12
[2022-02-18] MEDS ORDERED: BENZONATATE 100 MG CAPSULE PO STA (10:13)
[2022-02-18] MEDS ORDERED: DEXAMETHASONE 10 MG/ML VIAL PO STA (10:13)
[2022-02-18] MEDS ORDERED: CHERRY SYRUP 10 ML UDC PO ONE (10:13)
[2022-02-18] MEDS ORDERED: ALBUTEROL 1 PUFF INH STA (10:13)
--- NOTE | 2022-02-18 10:36 | XRAY Report ---
PROCEDURE: Chest 1 View X-Ray INDICATIONS: cough and wheezing TECHNIQUE: One view of the chest was acquired. COMPARISON: December 29, 2016 FINDINGS: Suboptimal positioning. SUPPORT DEVICES: None. LUNGS/PLEURA: No focal consolidation, pleural effusion or space-occupying pneumothorax. MEDIASTINUM: The cardiac silhouette is within normal limits. Retrocardiac lucency, suggesting hiatal hernia. BONES/SOFT TISSUES: No acute abnormality. IMPRESSION: 1.No acute cardiopulmonary abnormality. 2.Suggestion of hiatal hernia. A cavitary lesion cannot be excluded. Consider CT imaging for further evaluation as warranted. Reviewed by: Raphael Ohara MD on 02/18/2022 10:34 AM PDT Approved by: Raphael Ohara MD on 02/18/2022 10:34 AM PDT Station ID: [id number]
[2022-02-18 11:31] LABS: B. PARAPERTUSSIS- RESP PCR PAN NOT DETECTED; B. PERTUSSIS- RESP PCR PANEL NOT DETECTED; C. PNEUMONIAE- RESP PCR PANEL NOT DETECTED; CORONAVIRUS 229E-RESP PCR NOT DETECTED; CORONAVIRUS HKU1-RESP PCR NOT DETECTED; CORONAVIRUS NL63-RESP PCR NOT DETECTED; CORONAVIRUS OC43-RESP PCR NOT DETECTED; HUMAN METAPNEUMOVIRUS NOT DETECTED; INFLUENZA A- RESP PCR PANEL NOT DETECTED; INFLUENZA B - RESP PCR PANEL NOT DETECTED; M. PNEUMONIAE- RESP PCR PANEL NOT DETECTED; PARAINFLUENZA VIRUS 1 NOT DETECTED; PARAINFLUENZA VIRUS 2 NOT DETECTED; PARAINFLUENZA VIRUS 3 NOT DETECTED; PARAINFLUENZA VIRUS 4 NOT DETECTED; RHINOVIRUS/ENTEROVIRUS DETECTED; RSV- RESP PCR PANEL NOT DETECTED; SARS-CoV-2 -RESP PCR PANEL NOT DETECTED
[2022-02-18 11:51] VITALS: BP 158/94
== END 2022-02-18 12:12 | disposition home or self-care (01) ==
LOC: ED 09:25
DX: J06.9 Acute upper respiratory infection, unspecified (principal)
CPT/HCPCS: 87633; 93005; 94640; 94664; 99284

== ENCOUNTER 2022-09-22 10:23 | Emergency (ER) | payer MEDICAID ==
[2022-09-22] MEDS ORDERED: HYDROmorphone 1 MG/ML CARPUJECT IVP STA (10:39)
[2022-09-22] MEDS ORDERED: KETOROLAC 30 MG/ML VIAL IVP STA (10:39)
[2022-09-22] MEDS ORDERED: SODIUM CHLORIDE 0.9% 1,000 ML IV STA (10:39)
[2022-09-22 10:58] LABS: BASOPHILS % (AUTO) 0.6 %; EOSINOPHILS % (AUTO) 0.3 %; HCT - HEMATOCRIT 39.9 % (37.0-47.0); HGB - HEMOGLOBIN 12.6 g/dL (12.0-16.0); LYMPHOCYTES # (AUTO) 0.2 10^3/uL (1.5-3.5); LYMPHOCYTES % (AUTO) 5.3 %; MEAN CORPUSCULAR HGB CONC 31.6 g/dL (32.0-36.0); MEAN CORPUSCULAR VOLUME 91.7 fL (81.0-99.0); MEAN PLATELET VOLUME 9.4 fL (7.9-10.8); MONOCYTES # (AUTO) 0.7 10^3/uL (0.0-1.0); MONOCYTES % (AUTO) 18.5 %; NEUTROPHILS # (AUTO) 2.7 10^3/uL (1.5-6.6); PLT - PLATELET COUNT 220 10^3/uL (130-450); RED BLOOD COUNT 4.35 10^6/uL (4.20-5.40); RED CELL DISTRIBUTION WIDTH 13.8 % (12.0-15.0); WHITE BLOOD COUNT 3.6 x10^3/uL (4.8-10.8)
[2022-09-22 11:07] LABS: ALBUMIN 3.9 g/dL (3.2-5.5); ALBUMIN/GLOBULIN RATIO 1.3 (1.0-2.2); BILIRUBIN,TOTAL 0.9 mg/dL (0.2-1.0); CALCIUM 8.6 mg/dL (8.5-10.3); POTASSIUM 3.9 mmol/L (3.5-5.0)
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
[2022-09-22] MEDS ORDERED: HYDROcod/ACETAM 5/325 MG TABLET PO STA (12:24)
[2022-09-22] MEDS ORDERED: traMADol 50 MG TABLET PO STA (12:46)
[2022-09-22 13:00] VITALS: BP 129/80
== END 2022-09-22 13:01 | disposition home or self-care (01) ==
LOC: EDUNIT# → ED 10:23
DX: R68.84 Jaw pain (principal); G89.29 Other chronic pain; K52.9 Noninfective gastroenteritis and colitis, unspecified
CPT/HCPCS: 36415; 80053; 83690; 85025; 93005; 96374; 99284; A9270; J1170

== ENCOUNTER → 2022-09-22 | Outpatient (CLI) | payer MEDICAID | END | disposition critical access hospital (66) | LOC: EMS 10:05 | DX: R11.2 Nausea with vomiting, unspecified (principal); R51.9 Headache, unspecified | CPT/HCPCS: A0425; A0427; A0999 ==

== ENCOUNTER 2022-10-01 10:32 | Outpatient (CLI) | payer MEDICAID | END 2022-10-01 10:33 | disposition critical access hospital (66) | LOC: EMS 10:32 | DX: R06.09 Other forms of dyspnea (principal); R11.0 Nausea | CPT/HCPCS: A0425; A0429; A0999 ==

== ENCOUNTER 2022-10-01 10:51 | Emergency (ER) | payer MEDICAID ==
--- NOTE | 2022-10-01 11:42 | XRAY Report ---
PROCEDURE: Chest 2 View X-Ray INDICATIONS: cough TECHNIQUE: 2 views of the chest were acquired. COMPARISON: 02/18/2022, 03/28/2017 FINDINGS: Surgical changes and devices: 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 clips are seen. Lungs and pleura: Low lung volumes can be seen, causing a crowded appearance to the lung markings. M ild interstitial prominence is seen. No focal infiltrate is seen. No pneumothorax or large pleural ef fusion can be seen. Mediastinum: Mediastinal contours are normal. Heart size is normal. There is an apparent moderate to large hiatal hernia seen. Bones and chest wall: No suspicious bony abnormalities. Age-appropriate degenerative changes are see n. There is accentuated thoracic kyphosis. Soft tissues appear unremarkable. IMPRESSION: Generalized interstitial prominence is seen. Pulmonary edema is suspected, although differential diag nosis includes artifact and atypical infiltrate in this patient with low lung volumes. Apparent hiatal hernia again seen. If it would be helpful for clinical management decision making, please consider a dedicated chest CT for further evaluation. Reviewed by: Js Machado MD on 10/01/2022 10:40 AM [facility] Approved by: Js Machado MD on 10/01/2022 10:40 AM [facility] Station ID: [id number]
[2022-10-01 12:47] LABS: B. PARAPERTUSSIS- RESP PCR PAN NOT DETECTED; B. PERTUSSIS- RESP PCR PANEL NOT DETECTED; C. PNEUMONIAE- RESP PCR PANEL NOT DETECTED; CORONAVIRUS 229E-RESP PCR NOT DETECTED; CORONAVIRUS HKU1-RESP PCR NOT DETECTED; CORONAVIRUS NL63-RESP PCR NOT DETECTED; CORONAVIRUS OC43-RESP PCR NOT DETECTED; HUMAN METAPNEUMOVIRUS NOT DETECTED; INFLUENZA A- RESP PCR PANEL NOT DETECTED; INFLUENZA B - RESP PCR PANEL NOT DETECTED; M. PNEUMONIAE- RESP PCR PANEL NOT DETECTED; PARAINFLUENZA VIRUS 1 NOT DETECTED; PARAINFLUENZA VIRUS 2 NOT DETECTED; PARAINFLUENZA VIRUS 3 NOT DETECTED; PARAINFLUENZA VIRUS 4 NOT DETECTED; RHINOVIRUS/ENTEROVIRUS NOT DETECTED; RSV- RESP PCR PANEL NOT DETECTED
[2022-10-01 12:51] LABS: SARS-CoV-2 -RESP PCR PANEL DETECTED
[2022-10-01 14:24] LABS: BASOPHILS % (AUTO) 0.3 %; HCT - HEMATOCRIT 42.7 % (37.0-47.0); LYMPHOCYTES % (AUTO) 20.2 %; MEAN CORPUSCULAR HGB CONC 32.8 g/dL (32.0-36.0); MEAN CORPUSCULAR VOLUME 88.4 fL (81.0-99.0); MEAN PLATELET VOLUME 9.5 fL (7.9-10.8); MONOCYTES % (AUTO) 11.9 %; NEUTROPHILS % (AUTO) 67.1 %; PLT - PLATELET COUNT 233 10^3/uL (130-450); RED BLOOD COUNT 4.83 10^6/uL (4.20-5.40); RED CELL DISTRIBUTION WIDTH 13.6 % (12.0-15.0)
[2022-10-01 14:30] LABS: SLIDE REVIEW? Indicated
[2022-10-01 14:31] LABS: ABNORMAL LYMPHS % (MANUAL) 0 %; BAND NEUTROPHILS % (MANUAL) 0 %
[2022-10-01 14:46] LABS: ALBUMIN 3.9 g/dL (3.2-5.5); BILIRUBIN,TOTAL 1.6 mg/dL (0.2-1.0); CALCIUM 8.6 mg/dL (8.5-10.3); CREATININE 0.9 mg/dL (0.4-1.0); POTASSIUM 3.4 mmol/L (3.5-5.0)
[2022-10-01 15:23] LABS: DIFFERENTIAL COMMENT MANUAL DIFFERENTIAL; LYMPHOCYTES # (MANUAL) 0.9 10^3/uL (1.5-3.5); LYMPHOCYTES % (MANUAL) 22 %; MONOCYTES # (MANUAL) 0.5 10^3/uL (0.0-1.0); NEUTROPHILS # (MANUAL) 2.6 10^3/uL (1.5-6.6); PLATELET ESTIMATE, MANUAL NORMAL (130-450,000) (NORMAL); PLATELET MORPHOLOGY NORMAL APPEARANCE (NORMAL); RBC MORPHOLOGY (MULTIPLE) NORMAL APPEARANCE (NORMAL)
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
[2022-10-01 16:51] VITALS: BP 145/89
== END 2022-10-01 17:40 | disposition home or self-care (01) ==
LOC: EDUNIT# → ED 10:51
DX: J18.9 Pneumonia, unspecified organism (principal); U07.1 COVID-19
CPT/HCPCS: 36415; 80053; 83690; 83880; 85025; 87633; 99283; 99284

== ENCOUNTER 2022-10-01 17:04 | Outpatient (CLI) | payer MEDICAID | END 2022-10-01 17:05 | disposition home or self-care (01) | LOC: EMS 17:04 | PROVIDERS: ATTEND Registered Nurse | DX: U07.1 COVID-19 (principal) | CPT/HCPCS: A0425; A0428 ==

== ENCOUNTER 2024-03-06 10:09 | Emergency (ER) | payer MEDICAID, OTHER ==
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
[2024-03-06 12:00] LABS: BASOPHILS # (AUTO) 0.1 10^3/uL (0.0-0.1); BASOPHILS % (AUTO) 0.9 %; EOSINOPHILS # (AUTO) 0.2 10^3/uL (0.0-0.7); EOSINOPHILS % (AUTO) 2.8 %; HCT - HEMATOCRIT 43.9 % (37.0-47.0); LYMPHOCYTES # (AUTO) 2.5 10^3/uL (1.5-3.5); LYMPHOCYTES % (AUTO) 39.2 %; MEAN CORPUSCULAR HEMOGLOBIN 29.9 pg (27.0-31.0); MEAN CORPUSCULAR HGB CONC 31.9 g/dL (32.0-36.0); MEAN CORPUSCULAR VOLUME 93.8 fL (81.0-99.0); MONOCYTES # (AUTO) 0.5 10^3/uL (0.0-1.0); MONOCYTES % (AUTO) 7.7 %; NEUTROPHILS # (AUTO) 3.1 10^3/uL (1.5-6.6); NEUTROPHILS % (AUTO) 49.1 %; PLT - PLATELET COUNT 294 10^3/uL (130-450); RED BLOOD COUNT 4.68 10^6/uL (4.20-5.40); RED CELL DISTRIBUTION WIDTH 13.4 % (12.0-15.0); WHITE BLOOD COUNT 6.4 x10^3/uL (4.8-10.8)
[2024-03-06 12:11] LABS: MAGNESIUM 2.1 mg/dL (1.7-2.3)
[2024-03-06] MEDS: ONDANSETRON 4 MG/2 ML VIAL IVP STA (12:16)
[2024-03-06] MEDS: SODIUM CHLORIDE 0.9% 1,000 ML IV STA (12:17)
[2024-03-06 12:18] LABS: ALBUMIN 4.3 g/dL (3.2-5.5); ALBUMIN/GLOBULIN RATIO 1.4 (1.0-2.2); ALKALINE PHOSPHATASE 76 IU/L (42-121); ALT ALANINE AMINOTRANSFERASE 15 IU/L (10-60); AST ASPARTATE AMINOTRANSFERASE 18 IU/L (10-42); BUN - BLOOD UREA NITROGEN 14 mg/dL (6-20); CALCIUM 9.3 mg/dL (8.5-10.3); CARBON DIOXIDE - CO2 26 mmol/L (21-32); CHLORIDE 105 mmol/L (101-111); CRP - C-REACTIVE PROTEIN < 0.5 mg/dL (<0.5); GFR - MDRD 56 (>89); GLUCOSE 90 mg/dL (74-104); LIPASE 27 U/L (11-82); POTASSIUM 3.9 mmol/L (3.5-4.5); SODIUM 139 mmol/L (135-145); TOTAL PROTEIN 7.3 g/dL (6.4-8.9)
[2024-03-06 12:41] LABS: BILIRUBIN,URINE NEGATIVE (NEGATIVE); GLUCOSE, URINE (UA) NEGATIVE (NEGATIVE); KETONES,URINE (UA) NEGATIVE (NEGATIVE); LEUKOCYTE ESTERASE, URINE TRACE (NEGATIVE); NITRITE,URINE NEGATIVE (NEGATIVE); OCCULT BLOOD,URINE NEGATIVE (NEGATIVE); PROTEIN,URINE NEGATIVE (NEGATIVE); UROBILINOGEN,URINE 0.2 (NORMAL) E.U./dL (NORMAL)
--- NOTE | 2024-03-06 12:42 | XRAY Report ---
PROCEDURE: Chest 1V INDICATIONS: chest pain TECHNIQUE: One view of the chest was acquired. COMPARISON: 10/01/2022, 02/18/2022 FINDINGS: Surgical changes and devices: None. Lungs and pleura: No pleural effusions or pneumothorax. Left retrocardiac opacity compatible with pr eviously described hiatal hernia. Curvilinear opacities adjacent to the cardiac apex consistent with atelectasis. Mild diffuse interstitial prominence with crowding of the airways consistent with atelec tasis. Mediastinum: Mediastinal contours appear normal. Heart size is stable. Bones and chest wall: No suspicious bony lesions. Overlying soft tissues appear unremarkable. IMPRESSION: Findings compatible with slightly decreased lung volumes and associated atelectasis. Consider dedicat ed upright PA and lateral views of the chest to confirm when patient is able. Suspected hiatal hernia redemonstrated. Reviewed by: Geovanni Wolff MD on 03/06/2024 12:41 PM PDT Approved by: Geovanni Wolff MD on 03/06/2024 12:41 PM PDT Station ID: [id number]
[2024-03-06 12:46] LABS: CLARITY,URINE CLEAR (CLEAR)
[2024-03-06 13:00] LABS: RBC,URINE 0-5 /HPF (0-5); SQUAMOUS EPITHELIAL CELL,UR FEW Squamous (<= Few); WBC,URINE 0-3 /HPF (0-5)
[2024-03-06 13:01] LABS: B. PARAPERTUSSIS- RESP PCR PAN NOT DETECTED; B. PERTUSSIS- RESP PCR PANEL NOT DETECTED; C. PNEUMONIAE- RESP PCR PANEL NOT DETECTED; CORONAVIRUS 229E-RESP PCR NOT DETECTED; CORONAVIRUS HKU1-RESP PCR NOT DETECTED; CORONAVIRUS NL63-RESP PCR NOT DETECTED; CORONAVIRUS OC43-RESP PCR NOT DETECTED; HUMAN METAPNEUMOVIRUS NOT DETECTED; INFLUENZA A- RESP PCR PANEL NOT DETECTED; INFLUENZA B - RESP PCR PANEL NOT DETECTED; M. PNEUMONIAE- RESP PCR PANEL NOT DETECTED; PARAINFLUENZA VIRUS 1 NOT DETECTED; PARAINFLUENZA VIRUS 2 NOT DETECTED; PARAINFLUENZA VIRUS 3 NOT DETECTED; PARAINFLUENZA VIRUS 4 NOT DETECTED; RHINOVIRUS/ENTEROVIRUS NOT DETECTED; RSV- RESP PCR PANEL NOT DETECTED; SARS-CoV-2 -RESP PCR PANEL NOT DETECTED
[2024-03-06 13:01] LABS: BACTERIA,URINE Rare /HPF (None Seen)
[2024-03-06 16:05] VITALS: BP 148/79; O2SAT 95
== END 2024-03-06 16:01 | disposition home or self-care (01) ==
LOC: ED 10:09
DX: R53.83 Other fatigue (principal); M54.9 Dorsalgia, unspecified; I25.2 Old myocardial infarction; J44.9 Chronic obstructive pulmonary disease, unspecified; E11.9 Type 2 diabetes mellitus without complications; E05.90 Thyrotoxicosis, unspecified without thyrotoxic crisis or storm
CPT/HCPCS: 36415; 80053; 81001; 81003; 82607; 83690; 83735; 85025; 86140; 87086; 87633; 93005; 96374; 99283